=== PATIENT | female | born 1970 | race Caucasian/White ===

== ENCOUNTER 2019-03-31 16:35 | Inpatient (IN) ==
[2019-03-31] MEDS ORDERED: 0.9 % Sodium Chloride 1,000 ML IVC ONE ×2 (17:01→20:53)
[2019-03-31] MEDS ORDERED: Cefepime HCl 1,000 MG in Water for inj. (sterile) 20 ML 10 ML IVP STA (17:06)
[2019-03-31 17:24] LABS: VBG HCO3 28 mEq/L (21-27); VBG PCO2 50 mmHg (41-51); VBG PH 7.35 pH Units (7.32-7.42); VBG PO2 46 mmHg (25-50)
[2019-03-31 17:27] LABS: Basophils % 0.3 %; Eosinophils # 0.1 K/mcL (0.0-0.6); Hematocrit 48.1 % (35.3-44.9); Hemoglobin 16.1 g/dL (11.5-15.4); Immature Granulocytes % 0.2 % (0-4); Lymphocytes # 2.4 K/mcL (0.6-4.6); Mean Corpuscular HGB Conc 33.5 g/dL (31.6-35.5); Mean Corpuscular Hemoglobin 29.8 pg (28.0-33.3); Mean Corpuscular Volume 89.1 fL (83.0-100.0); Mean Platelet Volume 10.3 fL (9.4-12.4); Monocytes # 0.5 K/mcL (0.0-1.3); Monocytes % 5.3 %; Platelet Count 148 K/mcL (140-400); Red Cell Distribution Width 12.4 % (11.5-14.5); Segmented Neutrophils % 69.2 %
[2019-03-31 17:28] LABS: Bilirubin,Urine Negative (Negative); Blood,Urine Small (Negative); Clarity,Urine Cloudy (Clear); Color,Urine Yellow (Yellow); Glucose,Urine (UA) >=1000 mg/dL (Normal); Ketones,Urine Negative (Negative); Leukocyte Esterase,Urine Small (Negative); Nitrite,Urine Negative (Negative); Protein,Urine Negative (Neg-Trace); Specific Gravity,Urine > 1.030 (1.010-1.025); Urobilinogen,Urine Normal (Normal)
--- NOTE | 2019-03-31 17:31 | Emergency Department Note ---
Disposition Clinical Impression: Abscess, Nausea, Myalgia, Hyperglycemia Urinary tract infection Qualifiers: Urinary tract infection type: acute cystitis Hematuria presence: without hematuria Qualified Code(s): N30.00 - Acute cystitis without hematuria Disposition: Admitted As Inpatient Condition: Fair Referrals: NONE,PCP [Primary Care Provider] - Forms: ED Satisfaction Letter General Adult HPI - General Chief complaint: ED Skin/Abscess/Foreign Body Stated complaint: Right arm abscess Time Seen by Provider: 03/31/19 16:43 Source: patient Mode of arrival: ambulatory Limitations: no limitations Nursing Notes Reviewed: Yes Vital Signs Reviewed: Yes - History of Present Illness HPI Narrative: 48-year-old female with significant past medical history of poorly controlled diabetes presenting to the emergency department chief complaint of abscess on her left elbow. Patient states she is an IV drug user and had injection into that site. About 1 week ago became red, raised and then started draining. A scab was over and now that is falling off. She states it is severely painful and she has had severe nausea diffuse myalgias and has not been able to keep her oral intake. She denies any fevers, chest pain or shortness of breath. She denies any history of abscesses or MRSA infection. Pain Scale: 8 - Related Data Home Medications Medication Instructions Recorded Confirmed Carvedilol [Coreg] 3.125 mg PO BIDWM 03/31/19 03/31/19 DULoxetine [Cymbalta] 30 mg PO DAILY 03/31/19 03/31/19 Gabapentin [Neurontin] 300 mg PO TID 03/31/19 03/31/19 Ibuprofen [Ibu] 800 mg PO TID PRN 03/31/19 03/31/19 Insulin Glargine,Hum.rec.anlog 20 unit SQ HS 03/31/19 03/31/19 [Basaglar Kwikpen U-100] Insulin Glargine,Hum.rec.anlog 25 units SQ QAM 03/31/19 03/31/19 [Basaglar Kwikpen U-100] Lisinopril [Zestril] 2.5 mg PO DAILY 03/31/19 03/31/19 Quetiapine Fumarate [SEROquel] 25 mg PO HS 03/31/19 03/31/19 Allergies Allergy/AdvReac Type Severity Reaction Status Date / Time Penicillins Allergy Rash Verified 03/31/19 16:37 All systems ED: reviewed and negative except as stated. Constitutional: Reports: weakness. Denies: fever Eyes: Reports: as per HPI ENT ED: Reports: as per HPI Cardiovascular: Denies: chest pain Respiratory: Denies: dyspnea Gastrointestinal: Reports: nausea. Denies: abdominal pain Genitourinary: Reports: as per HPI Musculoskeletal: Reports: as per HPI Integumentary: Reports: lesions Neurological: Reports: as per HPI Psychiatric: Reports: as per HPI Endocrine: Reports: as per HPI Hematological/Lymphatic: Reports: as per HPI Allergic/Immunologic: Reports: as per HPI Past Medical History - Past Medical History Attestation: Yes The following information was validated with the patient. Medical history: Reports: diabetes - Social History Smoking Status: Current every day smoker Smokeless Tobacco Status: No Alcohol use: Reports: none Drug use: Reports: IV Drug Use Physical Exam - General Limitations: no limitations General appearance: alert, in no apparent distress - Head Head exam: atraumatic, normocephalic, normal inspection - Eye Eye exam: Absent: scleral icterus - ENT ENT exam: mucous membranes dry - Neck Neck exam: Present: full ROM - Chest Chest inspection: Present: symmetric chest wall rise - Respiratory Respiratory exam: Present: normal lung sounds bilaterally. Absent: respiratory distress, wheezes - Cardiovascular Cardiovascular exam: Present: normal rhythm, tachycardia, normal heart sounds - Abdominal Exam Abdominal exam: Present: soft, Non-Tender. Absent: distention, guarding, rebound - Extremities Exam Extremities exam: Present: full ROM, other (Large abscess opened with partial scab covering on the medial aspect of the right anterior elbow. Mild drainage. Redness and firmness around the site. Tenderness to palpation. No streaking. No eschar) - Neurological Exam Neurological exam: Present: alert, oriented X3 - Psychiatric Psychiatric exam: Present: anxious - Skin Skin exam: Present: warm Course Course Narrative: 48-year-old female IV drug user with diabetes presenting with abscess on the left arm. Patient has had it for approximately one week and is now not feeling well including nausea and diffuse myalgia. Concern for sepsis due to abscess. She is alert and oriented 3. Tachycardic but hemodynamically stable. We will obtain basic laboratory analysis including blood cultures, lactic acid and provide the patient with IV antibiotics including vancomycin and cefepime. Disposition most likely admission the pending results. Patient agrees with this plan. - Reevaluation(s) Reevaluation #1: Patient's laboratory analysis shows glucose greater than 600 and an elevated lactic acid at 2.6. No leukocytosis at this time. Patient also has UTI. At this time we will plan to admit the patient for hyperglycemia, abscess and further management. Patient remains alert and oriented 3 and hemodynamically stable. Patient agrees with this plan. I spoke with the hospitalist on-call who agrees to accept the patient at this time. Vital Signs Temperature 98.6 F 03/31/19 16:38 Pulse Rate 112 03/31/19 16:38 Respiratory Rate 20 03/31/19 16:38 Blood Pressure 123/85 03/31/19 16:38 O2 Sat by Pulse Oximetry 98 03/31/19 16:38 Temperature 98.6 F 03/31/19 17:01 Pulse Rate 112 03/31/19 17:01 Respiratory Rate 20 03/31/19 17:01 Blood Pressure 123/85 03/31/19 17:01 O2 Sat by Pulse Oximetry 98 03/31/19 17:01 Oxygen Delivery Oxygen Delivery Room Air Medical Decision Making - Lab Data Result diagrams: 03/31/19 17:01 03/31/19 17:01 Lab Results 03/31/19 03/31/19 03/31/19 Range/Units 17:01 17:01 17:06 WBC 10.2 (4.3-11.1) K/mcL RBC 5.40 H (3.82-4.97) M/mcL Hgb 16.1 H (11.5-15.4) g/dL Hct 48.1 H (35.3-44.9) % MCV 89.1 (83.0-100.0) fL MCH 29.8 (28.0-33.3) pg MCHC 33.5 (31.6-35.5) g/dL RDW 12.4 (11.5-14.5) % Plt Count 148 (140-400) K/mcL MPV 10.3 (9.4-12.4) fL Immature Gran % 0.2 (0-4) % Seg Neutrophils % 69.2 % Lymphocytes % 24.0 % Monocytes % 5.3 % Eosinophils % 1.0 % Basophils % 0.3 % Neutrophils # 7.0 (1.6-8.9) K/mcL Lymphocytes # 2.4 (0.6-4.6) K/mcL Monocytes # 0.5 (0.0-1.3) K/mcL Eosinophils # 0.1 (0.0-0.6) K/mcL Basophils # 0.0 (0.0-0.2) K/mcL VBG pH (7.32-7.42) pH Units VBG pCO2 (41-51) mmHg VBG pO2 (25-50) mmHg VBG HCO3 (21-27) mEq/L Sodium 129 L (136-145) mEq/L Potassium 3.5 (3.5-5.1) mEq/L Chloride 92 L (98-107) mEq/L Carbon Dioxide 28 (23-29) mEq/L BUN 7 (6-20) mg/dL Creatinine 0.70 (0.60-1.20) mg/dL Est GFR ( Amer) > 60 (> 60) Est GFR (Non-Af Amer) > 60 (> 60) BUN/Creatinine Ratio 10 (6-26) Glucose 639 H* (70-105) mg/dL Calculated Osmolality 296 (280-300) Lactic Acid (0.5-2.2) mmol/L Calcium 9.4 (8.6-10.3) mg/dL Beta-Hydroxybutyric Acd 0.15 (0.02-0.27) mmol/L Urine Color (Yellow) Urine Clarity (Clear) Urine pH (5.0-8.0) pH Units Ur Specific [place] (1.010-1.025) Urine Protein (Neg-Trace) mg/dL Urine Glucose (UA) (Normal) mg/dL Urine Ketones (Negative) mg/dL Urine Blood (Negative) Urine Nitrite (Negative) Urine Bilirubin (Negative) Urine Urobilinogen (Normal) mg/dL Ur Leukocyte Esterase (Negative) Urine Microscopic RBC (0-3) per hpf Urine Microscopic WBC (0-3) per hpf Ur Squamous Epith Cells (None-Few) per lpf Urine Bacteria (None-Few) per hpf Hyaline Casts (None-Few) per lpf Ur Culture Indicated? (NO) 03/31/19 03/31/19 03/31/19 Range/Units 17:11 17:21 17:21 WBC (4.3-11.1) K/mcL RBC (3.82-4.97) M/mcL Hgb (11.5-15.4) g/dL Hct (35.3-44.9) % MCV (83.0-100.0) fL MCH (28.0-33.3) pg MCHC (31.6-35.5) g/dL RDW (11.5-14.5) % Plt Count (140-400) K/mcL MPV (9.4-12.4) fL Immature Gran % (0-4) % Seg Neutrophils % % Lymphocytes % % Monocytes % % Eosinophils % % Basophils % % Neutrophils # (1.6-8.9) K/mcL Lymphocytes # (0.6-4.6) K/mcL Monocytes # (0.0-1.3) K/mcL Eosinophils # (0.0-0.6) K/mcL Basophils # (0.0-0.2) K/mcL VBG pH 7.35 (7.32-7.42) pH Units VBG pCO2 50 (41-51) mmHg VBG pO2 46 (25-50) mmHg VBG HCO3 28 H (21-27) mEq/L Sodium (136-145) mEq/L Potassium (3.5-5.1) mEq/L Chloride (98-107) mEq/L Carbon Dioxide (23-29) mEq/L BUN (6-20) mg/dL Creatinine (0.60-1.20) mg/dL Est GFR ( Amer) (> 60) Est GFR (Non-Af Amer) (> 60) BUN/Creatinine Ratio (6-26) Glucose (70-105) mg/dL Calculated Osmolality (280-300) Lactic Acid 2.6 H (0.5-2.2) mmol/L Calcium (8.6-10.3) mg/dL Beta-Hydroxybutyric Acd (0.02-0.27) mmol/L Urine Color Yellow (Yellow) Urine Clarity Cloudy A (Clear) Urine pH 6.0 (5.0-8.0) pH Units Ur Specific [place] > 1.030 H (1.010-1.025) Urine Protein Negative (Neg-Trace) mg/dL Urine Glucose (UA) >=1000 H (Normal) mg/dL Urine Ketones Negative (Negative) mg/dL Urine Blood Small H (Negative) Urine Nitrite Negative (Negative) Urine Bilirubin Negative (Negative) Urine Urobilinogen Normal (Normal) mg/dL Ur Leukocyte Esterase Small H (Negative) Urine Microscopic RBC 3-5 H (0-3) per hpf Urine Microscopic WBC 50-100 H (0-3) per hpf Ur Squamous Epith Cells Many H (None-Few) per lpf Urine Bacteria Many H (None-Few) per hpf Hyaline Casts None Seen (None-Few) per lpf Ur Culture Indicated? YES A (NO)
[2019-03-31 17:39] LABS: Bacteria,Urine Many per hpf (None-Few); Hyaline Casts,Urine None Seen per lpf (None-Few); Squamous Epithelial Cell,Urine Many per lpf (None-Few); WBC,Urine 50-100 per hpf (0-3)
[2019-03-31 17:45] LABS: BUN/Creatinine Ratio 10 (6-26); Blood Urea Nitrogen 7 mg/dL (6-20); Calcium 9.4 mg/dL (8.6-10.3); Carbon Dioxide 28 mEq/L (23-29); Chloride 92 mEq/L (98-107); Glucose 639 mg/dL (70-105); Osmolality,Calculated 296 (280-300); Potassium 3.5 mEq/L (3.5-5.1); Sodium 129 mEq/L (136-145); eGFR For Non-African Americans > 60 (> 60)
[2019-03-31] MEDS ORDERED: Insulin Human Regular 10 UNIT in 0.9 % Sodium Chloride 10 ML IV ONE (17:46)
--- NOTE | 2019-03-31 18:16 | Emergency Department Note ---
Disposition Clinical Impression: Abscess, Nausea, Myalgia, Hyperglycemia Urinary tract infection Qualifiers: Urinary tract infection type: acute cystitis Hematuria presence: without hematuria Qualified Code(s): N30.00 - Acute cystitis without hematuria Disposition: Admitted As Inpatient Condition: Fair Referrals: NONE,PCP [Primary Care Provider] - Forms: ED Satisfaction Letter General Adult HPI - General Chief complaint: ED Skin/Abscess/Foreign Body Stated complaint: Right arm abscess Time Seen by Provider: 03/31/19 16:43 Source: patient Mode of arrival: ambulatory Limitations: no limitations - History of Present Illness Pain Scale: 8 - Related Data Home Medications Medication Instructions Recorded Confirmed Carvedilol [Coreg] 3.125 mg PO BIDWM 03/31/19 03/31/19 DULoxetine [Cymbalta] 30 mg PO DAILY 03/31/19 03/31/19 Gabapentin [Neurontin] 300 mg PO TID 03/31/19 03/31/19 Ibuprofen [Ibu] 800 mg PO TID PRN 03/31/19 03/31/19 Insulin Glargine,Hum.rec.anlog 20 unit SQ HS 03/31/19 03/31/19 [Basaglar Kwikpen U-100] Insulin Glargine,Hum.rec.anlog 25 units SQ QAM 03/31/19 03/31/19 [Basaglar Kwikpen U-100] Lisinopril [Zestril] 2.5 mg PO DAILY 03/31/19 03/31/19 Quetiapine Fumarate [SEROquel] 25 mg PO HS 03/31/19 03/31/19 Allergies Allergy/AdvReac Type Severity Reaction Status Date / Time Penicillins Allergy Rash Verified 03/31/19 16:37 Constitutional: Reports: weakness. Denies: fever Eyes: Reports: as per HPI ENT ED: Reports: as per HPI Cardiovascular: Denies: chest pain Respiratory: Denies: dyspnea Gastrointestinal: Reports: nausea. Denies: abdominal pain Genitourinary: Reports: as per HPI Musculoskeletal: Reports: as per HPI Integumentary: Reports: lesions Neurological: Reports: as per HPI Psychiatric: Reports: as per HPI Endocrine: Reports: as per HPI Hematological/Lymphatic: Reports: as per HPI Allergic/Immunologic: Reports: as per HPI Past Medical History - Past Medical History Medical history: Reports: diabetes - Social History Smoking Status: Current every day smoker Smokeless Tobacco Status: No Alcohol use: Reports: none Drug use: Reports: IV Drug Use Physical Exam - General Limitations: no limitations General appearance: alert, in no apparent distress Course Vital Signs Temperature 98.6 F 03/31/19 16:38 Pulse Rate 112 03/31/19 16:38 Respiratory Rate 20 03/31/19 16:38 Blood Pressure 123/85 03/31/19 16:38 O2 Sat by Pulse Oximetry 98 03/31/19 16:38 Temperature 98.6 F 03/31/19 17:01 Pulse Rate 112 03/31/19 17:01 Respiratory Rate 20 03/31/19 17:01 Blood Pressure 123/85 03/31/19 17:01 O2 Sat by Pulse Oximetry 98 03/31/19 17:01 Oxygen Delivery Oxygen Delivery Room Air Medical Decision Making - Lab Data Result diagrams: 03/31/19 17:01 03/31/19 17:01 Lab Results 03/31/19 03/31/19 03/31/19 Range/Units 17:01 17:01 17:06 WBC 10.2 (4.3-11.1) K/mcL RBC 5.40 H (3.82-4.97) M/mcL Hgb 16.1 H (11.5-15.4) g/dL Hct 48.1 H (35.3-44.9) % MCV 89.1 (83.0-100.0) fL MCH 29.8 (28.0-33.3) pg MCHC 33.5 (31.6-35.5) g/dL RDW 12.4 (11.5-14.5) % Plt Count 148 (140-400) K/mcL MPV 10.3 (9.4-12.4) fL Immature Gran % 0.2 (0-4) % Seg Neutrophils % 69.2 % Lymphocytes % 24.0 % Monocytes % 5.3 % Eosinophils % 1.0 % Basophils % 0.3 % Neutrophils # 7.0 (1.6-8.9) K/mcL Lymphocytes # 2.4 (0.6-4.6) K/mcL Monocytes # 0.5 (0.0-1.3) K/mcL Eosinophils # 0.1 (0.0-0.6) K/mcL Basophils # 0.0 (0.0-0.2) K/mcL VBG pH (7.32-7.42) pH Units VBG pCO2 (41-51) mmHg VBG pO2 (25-50) mmHg VBG HCO3 (21-27) mEq/L Sodium 129 L (136-145) mEq/L Potassium 3.5 (3.5-5.1) mEq/L Chloride 92 L (98-107) mEq/L Carbon Dioxide 28 (23-29) mEq/L BUN 7 (6-20) mg/dL Creatinine 0.70 (0.60-1.20) mg/dL Est GFR ( Amer) > 60 (> 60) Est GFR (Non-Af Amer) > 60 (> 60) BUN/Creatinine Ratio 10 (6-26) Glucose 639 H* (70-105) mg/dL Calculated Osmolality 296 (280-300) Lactic Acid (0.5-2.2) mmol/L Calcium 9.4 (8.6-10.3) mg/dL Beta-Hydroxybutyric Acd 0.15 (0.02-0.27) mmol/L Urine Color (Yellow) Urine Clarity (Clear) Urine pH (5.0-8.0) pH Units Ur Specific [place] (1.010-1.025) Urine Protein (Neg-Trace) mg/dL Urine Glucose (UA) (Normal) mg/dL Urine Ketones (Negative) mg/dL Urine Blood (Negative) Urine Nitrite (Negative) Urine Bilirubin (Negative) Urine Urobilinogen (Normal) mg/dL Ur Leukocyte Esterase (Negative) Urine Microscopic RBC (0-3) per hpf Urine Microscopic WBC (0-3) per hpf Ur Squamous Epith Cells (None-Few) per lpf Urine Bacteria (None-Few) per hpf Hyaline Casts (None-Few) per lpf Ur Culture Indicated? (NO) 03/31/19 03/31/19 03/31/19 Range/Units 17:11 17:21 17:21 WBC (4.3-11.1) K/mcL RBC (3.82-4.97) M/mcL Hgb (11.5-15.4) g/dL Hct (35.3-44.9) % MCV (83.0-100.0) fL MCH (28.0-33.3) pg MCHC (31.6-35.5) g/dL RDW (11.5-14.5) % Plt Count (140-400) K/mcL MPV (9.4-12.4) fL Immature Gran % (0-4) % Seg Neutrophils % % Lymphocytes % % Monocytes % % Eosinophils % % Basophils % % Neutrophils # (1.6-8.9) K/mcL Lymphocytes # (0.6-4.6) K/mcL Monocytes # (0.0-1.3) K/mcL Eosinophils # (0.0-0.6) K/mcL Basophils # (0.0-0.2) K/mcL VBG pH 7.35 (7.32-7.42) pH Units VBG pCO2 50 (41-51) mmHg VBG pO2 46 (25-50) mmHg VBG HCO3 28 H (21-27) mEq/L Sodium (136-145) mEq/L Potassium (3.5-5.1) mEq/L Chloride (98-107) mEq/L Carbon Dioxide (23-29) mEq/L BUN (6-20) mg/dL Creatinine (0.60-1.20) mg/dL Est GFR ( Amer) (> 60) Est GFR (Non-Af Amer) (> 60) BUN/Creatinine Ratio (6-26) Glucose (70-105) mg/dL Calculated Osmolality (280-300) Lactic Acid 2.6 H (0.5-2.2) mmol/L Calcium (8.6-10.3) mg/dL Beta-Hydroxybutyric Acd (0.02-0.27) mmol/L Urine Color Yellow (Yellow) Urine Clarity Cloudy A (Clear) Urine pH 6.0 (5.0-8.0) pH Units Ur Specific [place] > 1.030 H (1.010-1.025) Urine Protein Negative (Neg-Trace) mg/dL Urine Glucose (UA) >=1000 H (Normal) mg/dL Urine Ketones Negative (Negative) mg/dL Urine Blood Small H (Negative) Urine Nitrite Negative (Negative) Urine Bilirubin Negative (Negative) Urine Urobilinogen Normal (Normal) mg/dL Ur Leukocyte Esterase Small H (Negative) Urine Microscopic RBC 3-5 H (0-3) per hpf Urine Microscopic WBC 50-100 H (0-3) per hpf Ur Squamous Epith Cells Many H (None-Few) per lpf Urine Bacteria Many H (None-Few) per hpf Hyaline Casts None Seen (None-Few) per lpf Ur Culture Indicated? YES A (NO) Attestation Statement - Attestation Attestation: I examined this patient and my medical decision-making was reviewed with the Resident Physician. I agree with the documented findings, disposition and treatment plan as described except to the extent set forth below. 48 year old female presents to the ED with complaints of right arm abscess and is an IVDA and has diabetes and it apears that she is increasingly more hypregycemic secondary to and arm infection. She is not in DKA. We will start cefepime and vanc and admit to medicine
[2019-03-31] MEDS ORDERED: D5% in Water 1,000 ML IVC PRN (20:53)
[2019-03-31] MEDS ORDERED: Ondansetron 4 MG/2 ML VIAL IVP PRN (20:53)
[2019-03-31] MEDS ORDERED: *HR* Dextrose 50 % in Water (Syg) 50 ML SYRINGE IVP PRN (20:53)
[2019-03-31] MEDS ORDERED: Isovue-370 500 ML BOTTLE IVP ONE ×2 (20:53)
[2019-03-31] MEDS ORDERED: Naloxone 0.4 MG/ML INJ IVP PRN ×2 (20:53)
[2019-03-31] MEDS ORDERED: Acetaminophen 325 MG TABLET PO PRN (20:53)
[2019-03-31] MEDS ORDERED: Dextrose Gel 15 GM/37.5 ML TUBE PO PRN ×2 (20:53)
--- NOTE | 2019-03-31 21:13 | Internal Med History&Physical ---
Date of Encounter: 04/01/19 Time of Encounter: 19:50 Internal Medicine - H&P: HPI Chief complaint: right arm ulcer; abdominal pain Admitted From: Emergency Dept Plans for Post Hospital Care: Home History of present illness: Ms. Ty is a 48 year old female who presents to the ER tonight with complaints of abscess/ulcer of her right arm at her injection site she uses for IV drugs. She was brought in by her daughter due to worsening pain, agitation, and swelling of right arm. Workup in ER revealed ulceration, cellulitis, and concern for abscess. She had blood cultures drawn and was started on antibiotics. She was then admitted to the hospitalist service. Upon my assessment of the patient, patient and daughter provide the above history. Patient admits to using and injecting methamphetamine regularly into her right arm/elbow area. Patient also complains of some abdominal pain. She complains mostly of right upper quadrant pain going to her scapula. She has had some nausea, food intolerance, and bloating. She has had occasional diarrhea. She also has suprapubic pain with dysuria. Urinalysis suggests UTI. She also complains of possible STD. She would like to get tested for gonorrhea and chlamydia. She has not been sexually active recently but has prior history of STDs. She denies any vaginal discharge or irritation. Regarding her IV drug use, she is a chronic abuser of methamphetamine. She lives in [place], [place], and her daughter brought her here locally where she resides. Her daughter brought her in the hospital today. Her daughter and sibling do not use drugs and are trying to get the patient to quit abusing illicit drugs. She does not drink alcohol. She does smoke marijuana as well. She admits to having hepatitis C and a prior history of MRSA from injection site infections. Past Med Surg Social Fam HX - Past Medical History Attestation: Yes The following information was validated with the patient. Source: patient, obtained from family Medical history: diabetes, hepatitis (Hep C) Psychiatric history: anxiety, bipolar, depression - Past Surgical History Surgical History: orthopedic, other - Social History Smoking Status: Current every day smoker Smokeless Tobacco Status: No Alcohol use: none Drug use: methamphetamine, IV Drug Use Current living situation: Home - Independent Activity Level: Independent ambulation Recent Out of Country Travel Within the Last 8 Weeks: No - Family History Mother Hx Family Medical Disorders: Yes (anixety, depression) Father Hx Family Endocrine Disorder: Yes (DM) Internal Medicine - H&P: Meds Carvedilol [Coreg] 3.125 mg PO BIDWM 03/31/19 [History] DULoxetine [Cymbalta] 30 mg PO DAILY 03/31/19 [History] Gabapentin [Neurontin] 300 mg PO TID 03/31/19 [History] Ibuprofen [Ibu] 800 mg PO TID PRN 03/31/19 [History] Insulin Glargine,Hum.rec.anlog [Basaglar Kwikpen U-100] 20 unit SQ HS 03/31/19 [History] Insulin Glargine,Hum.rec.anlog [Basaglar Kwikpen U-100] 25 units SQ QAM 03/31/19 [History] Lisinopril [Zestril] 2.5 mg PO DAILY 03/31/19 [History] Quetiapine Fumarate [SEROquel] 25 mg PO HS 03/31/19 [History] Allergy/AdvReac Type Severity Reaction Status Date / Time Penicillins Allergy Rash Verified 03/31/19 16:37 - Constitutional Constitutional: chills, fever(s), no night sweats - EENT Eyes: no blurry vision, no change in vision Ears: no ear pain, no tinnitus Nose, mouth and throat: no nasal congestion, no sinus pressure, no sore throat - Cardiovascular Cardiovascular ROS IM: no chest pain, no dyspnea, no orthopnea, no syncope - Respiratory Respiratory: no cough, no chest congestion, no excessive phlegm production, no change in phlegm color, no pain with cough - Gastrointestinal Gastrointestinal: abdominal pain, belching, bloating, diarrhea, heartburn, nausea, vomiting, no coffee ground emesis, no hematemesis, no hematochezia, no melena - Genitourinary Genitourinary: dysuria, flank pain, pelvic pain, vaginal pruritis, no genital lesions, no hematuria, no vaginal discharge, no vaginal odor - Musculoskeletal Musculoskeletal ROS IM: no arthralgias, no back pain - Integumentary Integumentary IM: non-healing lesions (ulcer/surrounding cellulitis in right elbow), no rash, no jaundice - Neurological Neurological ROS: no disequilibrium, no dizziness, no focal weakness, no wei quent falls, no headache(s) - Psychiatric Psychiatric: anxiety, no depression - Endocrine Endocrine IM: polydipsia, polyuria, no cold intolerance, no heat intolerance, no polyphagia - Allergic/Immunologic Allergic/Immunologic: GI upset with certain foods - Constitutional Vitals: Temp Pulse Resp BP Pulse Ox 98.6 F 92 18 112/69 98 03/31/19 17:01 03/31/19 18:22 03/31/19 18:22 03/31/19 18:22 03/31/19 18:22 General appearance: Present: cooperative, mild distress, A&O X 3, pleasant, answers questions appropriately Exam: mild distress-- from right arm and RUQ pain - Head Head exam: Present: atraumatic, normal inspection - Eye Eye exam: Present: EOMI, PERRL. Absent: scleral icterus Pupils: Present: normal accommodation - ENT ENT exam: Present: mucous membranes dry, normal exam, normal oropharynx - Neck Neck exam general surgery: Present: full ROM, supple, trachea midline. Absent: lymphadenopathy, tenderness, nuchal rigidity, thyromegaly - Respiratory Respiratory exam: Present: CTAB. Absent: chest wall tenderness, rales, rhonchi, wheezes - Cardiovascular Cardiovascular exam: Present: RRR, +S1, +S2. Absent: diastolic murmur, systolic murmur - GI/Abdominal GI/Abdominal exam: Present: normal bowel sounds, soft, tenderness (RUQ), no peritoneal signs. Absent: guarding, hepatomegaly, mass, rebound, splenomegaly Additional comments: + suprapubic tenderness - Extremities Exam Extremities exam: Present: full ROM, tenderness, warm, radial pulses palpable and symmetrical. Absent: calf tenderness, joint swelling, pedal edema Additional comments: right arm/medial elbow area with ulceration at injection site with some surrounding erythema and swelling; both hands/arms neurovascularly intact - Back Exam Back exam: Present: normal inspection. Absent: CVA tenderness (L), CVA tenderness (R) - Neurological Exam Neurological exam: Present: alert, CN II-XII intact, oriented X3, no focal deficits, strengths equal and symetr throughout - Psychiatric Psychiatric exam: Present: anxious - Skin Skin exam: Present: dry, intact, warm Additional comments: right arm ulcer/cellulitis as above Internal Med - H&P Results - Labs CBC & Chem 7: 03/31/19 17:01 03/31/19 17:01 Labs: Short CBC 03/31/19 Range/Units 17:01 WBC 10.2 (4.3-11.1) K/mcL Hgb 16.1 H (11.5-15.4) g/dL Hct 48.1 H (35.3-44.9) % Plt Count 148 (140-400) K/mcL Neutrophils # 7.0 (1.6-8.9) K/mcL BMP 03/31/19 17:01 Sodium 129 L Potassium 3.5 Chloride 92 L Carbon Dioxide 28 BUN 7 Creatinine 0.70 Glucose 639 H* Calcium 9.4 Urine 03/31/19 Range/Units 17:21 Urine Color Yellow (Yellow) Urine Clarity Cloudy A (Clear) Urine pH 6.0 (5.0-8.0) pH Units Ur Specific [place] > 1.030 H (1.010-1.025) Urine Protein Negative (Neg-Trace) mg/dL Urine Glucose (UA) >=1000 H (Normal) mg/dL - ABG Interpretation ABG results: 03/31/19 17:21 VBG pH 7.35 VBG pCO2 50 VBG pO2 46 VBG HCO3 28 H - Assessment and Plan (1) Abscess Current Visit: Yes Status: Suspected Assessment and plan: 1. Blood cultures drawn in ER. 2. Will continue IV Vancomycin and Levaquin. 3. I ordered CT RUE to evaluate for underlying abscess. 4. Patient may need surgical intervention. (2) Hyperglycemia Current Visit: Yes Status: Acute Assessment and plan: 1. I ordered basal Levemir insulin and SSI. 2. Will hydrate with IVF and monitor glucose closely. 3. Patient does not have any evidence of DKA presently, but she is high risk for DKA if untreated. 4. She is non-complaint with her diabetes management. (3) Urinary tract infection Current Visit: Yes Status: Acute Assessment and plan: 1. Urine culture obtained. 2. Continue antibiotics as above. 3. GC/Chlamydia urine PCR ordered. 4. Patient may need DIRECTOR OF SURGERY consult. However, suspect symptoms are due to UTI and possible GB disease. Qualifiers: Urinary tract infection type: acute cystitis Hematuria presence: without hematuria Qualified Code(s): N30.00 - Acute cystitis without hematuria (4) Abdominal pain Current Visit: Yes Status: Acute Assessment and plan: 1. Suspect GB disease based upon history and exam. 2. CT abdomen and pelvis ordered. 3. Will check LFT's. 4. Protonix IV BID. 5. May need RUQ ultrasound. Qualifiers: Abdominal location: right upper quadrant Qualified Code(s): R10.11 - Right upper quadrant pain (5) DVT prophylaxis Current Visit: Yes Status: Acute Assessment and plan: 1. Heparin SQ.
[2019-03-31 21:37] LABS: Estimated Average Glucose 295 mg/dl; Hemoglobin A1C 11.9 %
[2019-03-31 21:43] LABS: Prothrombin Time 11.2 Seconds (9.4-12.1)
[2019-03-31] MEDS: Gabapentin 300 MG CAPSULE PO SCH (21:43)
[2019-03-31] MEDS: Pantoprazole 40 MG VIAL IVP SCH (21:44)
[2019-03-31] MEDS: Levofloxacin 750 MG/150 ML 750 MG/150 ML BAG IVPB SCH (21:44)
[2019-03-31 21:45] LABS: Albumin 2.9 g/dL (3.5-5.7); Albumin/Globulin Ratio 1.1 (1.1-2.2); Bilirubin,Direct 0.1 mg/dL (0.0-0.2); Bilirubin,Indirect 0.2 mg/dL (0.0-1.2); Bilirubin,Total 0.3 mg/dL (0.3-1.0); Globulin 2.7 g/dL (2.4-3.5); Total Protein 5.6 g/dL (6.4-8.9)
[2019-03-31 21:46] LABS: Activated Partial Thrombo Time 28.3 Seconds (26.0-36.0)
[2019-03-31] MEDS: Insulin LISPRO 300 UNITS/3 ML VIAL SQ SCH (21:56)
[2019-03-31] MEDS: Insulin DETEMIR 100 UNIT/ML X5UNITS SQ SCH (21:57)
[2019-03-31] MEDS: 0.9 % Sodium Chloride w KCl 20 MEQ/1,000 ML MLS IVC SCH (23:18)
[2019-03-31 23:41] LABS: Amphetamine Screen,Urine Positive ng/mL (Cutoff=1000); Barbiturate Screen,Urine Negative ng/mL (Cutoff=200); Benzodiazepines Screen,Urine Negative ng/mL (Cutoff=200); Cannabinoid Screen,Urine Negative ng/mL (Cutoff = 50); Cocaine Screen,Urine Positive ng/mL (Cutoff= 300); Opiate Screen,Urine Negative ng/mL (Cutoff=300); Phencyclidine Screen,Urine Negative ng/mL (Cutoff=25)
[2019-03-31] MEDS: traMADol 50 MG TABLET PO PRN (23:58)
[2019-04-01] MEDS ORDERED: MetroNIDAZOLE 500 MG/100 ML 500 MG/100 ML BAG IVPB SCH
[2019-04-01] MEDS ORDERED: Insulin DETEMIR 100 UNIT/ML X5UNITS SQ ONE (00:05)
[2019-04-01] MEDS: *HR* LORazepam 1 MG TABLET PO PRN ×3 (00:45→20:48)
[2019-04-01] MEDS ORDERED: Vancomycin 500 MG in 0.9 % Sodium Chloride Mini Bag 100 ML IVPB ONE (01:00)
[2019-04-01 01:10] LABS: Basophils % 0.5 %; Eosinophils # 0.1 K/mcL (0.0-0.6); Eosinophils % 1.1 %; Hematocrit 39.4 % (35.3-44.9); Immature Granulocytes % 0.3 % (0-4); Lymphocytes # 2.8 K/mcL (0.6-4.6); Lymphocytes % 35.9 %; Mean Corpuscular HGB Conc 33.2 g/dL (31.6-35.5); Mean Corpuscular Hemoglobin 30.1 pg (28.0-33.3); Mean Corpuscular Volume 90.6 fL (83.0-100.0); Mean Platelet Volume 10.4 fL (9.4-12.4); Monocytes # 0.7 K/mcL (0.0-1.3); Monocytes % 8.6 %; Neutrophils # 4.3 K/mcL (1.6-8.9); Platelet Count 107 K/mcL (140-400); Red Blood Count 4.35 M/mcL (3.82-4.97); Red Cell Distribution Width 12.4 % (11.5-14.5); Segmented Neutrophils % 53.6 %
[2019-04-01 01:13] LABS: Hemoglobin 13.1 g/dL (11.5-15.4)
[2019-04-01 01:19] LABS: Prothrombin Time 11.3 Seconds (9.4-12.1)
[2019-04-01 01:29] LABS: Alanine Aminotransferase 73 Units/L (7-52); Albumin 2.8 g/dL (3.5-5.7); Albumin/Globulin Ratio 1.2 (1.1-2.2); Alkaline Phosphatase 86 Units/L (34-104); Aspartate Amino Transferase 72 Units/L (13-39); BUN/Creatinine Ratio 13 (6-26); Bilirubin,Total 0.3 mg/dL (0.3-1.0); Blood Urea Nitrogen 7 mg/dL (6-20); Calcium 7.7 mg/dL (8.6-10.3); Carbon Dioxide 24 mEq/L (23-29); Chloride 106 mEq/L (98-107); Globulin 2.4 g/dL (2.4-3.5); Glucose 342 mg/dL (70-105); Magnesium 1.5 mg/dL (1.6-2.6); Osmolality,Calculated 288 (280-300); Potassium 4.1 mEq/L (3.5-5.1); Sodium 133 mEq/L (136-145); Total Protein 5.2 g/dL (6.4-8.9); eGFR For Non-African Americans > 60 (> 60)
[2019-04-01] MEDS: Pantoprazole 40 MG VIAL IVP SCH (05:31)
[2019-04-01] MEDS: *HR* Heparin 5,000 UNIT/ML VIAL SQ SCH ×2 (05:33→17:59)
[2019-04-01] MEDS: traMADol 50 MG TABLET PO PRN (05:39)
[2019-04-01] MEDS: 0.9 % Sodium Chloride w KCl 20 MEQ/1,000 ML MLS IVC SCH (08:45)
[2019-04-01] MEDS: Levofloxacin 750 MG/150 ML 750 MG/150 ML BAG IVPB SCH (08:46)
[2019-04-01] MEDS: Gabapentin 300 MG CAPSULE PO SCH ×3 (08:50→20:42)
[2019-04-01] MEDS: Insulin LISPRO 300 UNITS/3 ML VIAL SQ SCH ×4 (08:51→21:24)
[2019-04-01] MEDS: Insulin DETEMIR 100 UNIT/ML X5UNITS SQ SCH ×2 (11:48→21:28)
--- NOTE | 2019-04-01 14:16 | Event Note ---
Date of Encounter: 04/01/19 Time of Encounter: 11:15 H&P reviewed. Patient with history of IV drug abuse is admitted for right upper extremity abscess. Started on vancomycin/Levaquin, will consult orthopedics for possible I&D. Continue basal bolus insulin for poorly controlled diabetes
--- NOTE | 2019-04-01 18:44 | Orthopedic Consult Note ---
Date of Encounter: 04/01/19 Time of Encounter: 18:15 Assessment and Plan (1) Abscess Current Visit: Yes Status: Suspected Right medial elbow abscess noted on CT and exam with partial thickness skin ulceration to middle. I recommend to patient to do a bedside I&D of the abscess. I reviewed the procedure as well as r/b/a with the patient. She expressed understanding and consent was obtained. The right medial elbow was prepped and draped in sterile fashion. 10cc 1% lidocaine was used to anesthetize the medial elbow. There was no active drainage coming from the ulceration so the edges were linearly extended over the palpable fluctuance then through the ulceration to open area. There was bleeding but no purulent drainage expressed despite dissecting with hemostats to break any loculations. Pressure applied to edges but still only bleeding. wound cultures were obtained. Wound irrigated with saline and iodoform packing placed with dry gauze pressure dressing. Patient tolerated procedure well, no complications. Nurse was present for assistance. Leave dressings in place. Can reinforce dressings or replace if become saturated but try to not disturb packing in place. Elevate arm. ROM as tolerated. Pain control per primary team. IV abx per primary team. I did obtain wound cultures however patient has already been started on IV vancomycin and levoquin so questionable if will have any growth. Will reevaluate tomorrow and plan to remove the packing at that time. History of Present Illness Chief complaint: right elbow pain and swelling HPI: Ms. Ty is a 48 year old female who presented to [place] ER yesterday for right elbow pain and swelling worsening over the past week as well as abdominal pain. She admits to IVDA and did inject into the arm 1 week ago in same location as pain and swelling started. She states pain is sharp/pressure and localized to the elbow, does not radiate to shoulder or down arm. Denies any numbness or tingling. Denies any fevers or chills but has had abdominal pain. She does admit to a history of MRSA. She does admit to noncompliance with diabetes management. She denies any other symptoms at this time. Past Med Surg Social Fam HX - Past Medical History Medical history: diabetes, hepatitis (Hep C) Psychiatric history: anxiety, bipolar, depression - Past Surgical History Surgical History: orthopedic, other - Social History Smoking Status: Current every day smoker Smokeless Tobacco Status: No Alcohol use: none Drug use: methamphetamine, IV Drug Use - Family History Mother Hx Family Medical Disorders: Yes (anixety, depression) Father Hx Family Endocrine Disorder: Yes (DM) Medications and Allergies Carvedilol [Coreg] 3.125 mg PO BIDWM 03/31/19 [History] DULoxetine [Cymbalta] 30 mg PO DAILY 03/31/19 [History] Gabapentin [Neurontin] 300 mg PO TID 03/31/19 [History] Ibuprofen [Ibu] 800 mg PO TID PRN 03/31/19 [History] Insulin Glargine,Hum.rec.anlog [Basaglar Kwikpen U-100] 20 unit SQ HS 03/31/19 [History] Insulin Glargine,Hum.rec.anlog [Basaglar Kwikpen U-100] 25 units SQ QAM 03/31/19 [History] Lisinopril [Zestril] 2.5 mg PO DAILY 03/31/19 [History] Quetiapine Fumarate [SEROquel] 25 mg PO HS 03/31/19 [History] Allergy/AdvReac Type Severity Reaction Status Date / Time Penicillins Allergy Rash Verified 03/31/19 16:37 All Systems Reviewed: The remainder of the systems were reviewed and are negative - Constitutional Constitutional: as per HPI - Cardiovascular Cardiovascular: as per HPI - Respiratory Respiratory: as per HPI - Musculoskeletal Musculoskeletal: as per HPI Physical Exam - Constitutional Vitals: Temp Pulse Resp BP Pulse Ox 97.9 F 101 16 131/71 97 04/01/19 14:49 04/01/19 14:49 04/01/19 14:49 04/01/19 14:49 04/01/19 14:49 - Elbow right Location of pain elbow: medial (There is a noted partial thickness ulceration to the medial elbow roughly [id number] with fibrinous tissue in middle with surrounding erythema, no streaking noted up arm. Small edematous area palpable under erythema outside the ulceration. No active drainage with palpation of area . Moderate tenderness to palpation. Full ROM of elbow, wrist and hand. brisk cap refill. sensation intact distally. ) Results - Labs Result Diagrams: 04/01/19 00:52 04/01/19 00:52 Labs: Abnormal lab results RBC 5.40 M/mcL (3.82-4.97) H 03/31/19 17:01 Hgb 16.1 g/dL (11.5-15.4) H 03/31/19 17:01 Hct 48.1 % (35.3-44.9) H 03/31/19 17:01 Plt Count 107 K/mcL (140-400) L 04/01/19 00:52 VBG HCO3 28 mEq/L (21-27) H 03/31/19 17:21 Sodium 133 mEq/L (136-145) L 04/01/19 00:52 Chloride 92 mEq/L (98-107) L 03/31/19 17:01 0.52 mg/dL (0.60-1.20) L 04/01/19 00:52 Glucose 342 mg/dL (70-105) H 04/01/19 00:52 POC Glucose 320 mg/dL (70-99) H 04/01/19 16:19 11.9 % (-5.6) H 03/31/19 21:15 Lactic Acid 3.1 mmol/L (0.5-2.2) H 03/31/19 21:06 Calcium 7.7 mg/dL (8.6-10.3) L 04/01/19 00:52 Magnesium 1.5 mg/dL (1.6-2.6) L 04/01/19 00:52 AST 72 Units/L (13-39) H 04/01/19 00:52 ALT 73 Units/L (7-52) H 04/01/19 00:52 5.2 g/dL (6.4-8.9) L 04/01/19 00:52 2.8 g/dL (3.5-5.7) L 04/01/19 00:52 Cloudy (Clear) A 03/31/19 17:21 Ur Specific [place] > 1.030 (1.010-1.025) H 03/31/19 17:21 >=1000 mg/dL (Normal) H 03/31/19 17:21 Small (Negative) H 03/31/19 17:21 Ur Leukocyte Esterase Small (Negative) H 03/31/19 17:21 3-5 per hpf (0-3) H 03/31/19 17:21 50-100 per hpf (0-3) H 03/31/19 17:21 Ur Squamous Epith Cells Many per lpf (None-Few) H 03/31/19 17:21 Many per hpf (None-Few) H 03/31/19 17:21 Ur Culture Indicated? YES (NO) A 03/31/19 17:21 Ur Amphetamines Screen Positive ng/mL (Stykqe=1900) H 03/31/19 23:20 Positive ng/mL (Cutoff= 300) H 03/31/19 23:20 H & H 04/01/19 Range/Units 00:52 Hgb 13.1 D (11.5-15.4) g/dL Hct 39.4 (35.3-44.9) % All other labs normal. - Diagnostic results Elbow CT: report reviewed, image reviewed Consult Discharge Plan - Plan Referrals: NONE,PCP [Primary Care Provider] - - Attending Attestation Case and plan of care discussed with supervising physician, Dr. Rios, who was available for all aspects of care.
[2019-04-02] MEDS: *HR* Heparin 5,000 UNIT/ML VIAL SQ SCH (04:10)
[2019-04-02 06:31] LABS: Hematocrit 41.2 % (35.3-44.9); Hemoglobin 13.8 g/dL (11.5-15.4); Mean Corpuscular HGB Conc 33.5 g/dL (31.6-35.5); Mean Corpuscular Hemoglobin 30.2 pg (28.0-33.3); Mean Corpuscular Volume 90.2 fL (83.0-100.0); Mean Platelet Volume 10.3 fL (9.4-12.4); Platelet Count 114 K/mcL (140-400); Red Blood Count 4.57 M/mcL (3.82-4.97); Red Cell Distribution Width 12.3 % (11.5-14.5)
[2019-04-02 06:53] LABS: BUN/Creatinine Ratio 25 (6-26); Blood Urea Nitrogen 13 mg/dL (6-20); Calcium 8.6 mg/dL (8.6-10.3); Carbon Dioxide 29 mEq/L (23-29); Chloride 100 mEq/L (98-107); Glucose 306 mg/dL (70-105); Osmolality,Calculated 290 (280-300); Sodium 134 mEq/L (136-145); eGFR For Non-African Americans > 60 (> 60)
[2019-04-02] MEDS: Insulin LISPRO 300 UNITS/3 ML VIAL SQ SCH ×4 (08:15→21:56)
[2019-04-02] MEDS: Levofloxacin 750 MG/150 ML 750 MG/150 ML BAG IVPB SCH (08:16)
[2019-04-02] MEDS: Gabapentin 300 MG CAPSULE PO SCH ×3 (08:17→21:55)
[2019-04-02] MEDS: Insulin DETEMIR 100 UNIT/ML X5UNITS SQ SCH ×2 (08:26→21:55)
[2019-04-02] MEDS ORDERED: Insulin DETEMIR 100 UNIT/ML X5UNITS SQ ONE (09:15)
--- NOTE | 2019-04-02 13:08 | Internal Med Progress Note ---
Hospitalist Progress Note - Encounter Date of Encounter: 04/02/19 Time of Encounter: 10:45 - Subjective Interval History: Underwent I&D of right elbow abscess uneventfully yesterday. No acute events overnight. No fever/chills - Exam Vitals: Temp Pulse Resp BP Pulse Ox 98.5 F 88 15 102/69 96 04/02/19 11:17 04/02/19 11:17 04/02/19 11:17 04/02/19 11:17 04/02/19 11:17 Exam: General: Alert and oriented, not in acute distress. Cardiovascular:Normal S1 & S2, No JVD. Pulse regular. No murmur Lungs: clear to auscultation, no wheezes/rales Abdomen:Soft, non-tender, no rigidity. Extremities: RUE dressing c/d/i, neurovascularly intact distally - Assessment and Plan (1) Abscess Current Visit: Yes Status: Acute Assessment and Plan: R medial elbow abscess noted on CT underwent I&D yesterday evening by orthopedics continue IV Vanc/levaquin, follow up on blood and intraop cultures dressing change per orthopedics (2) Hyperglycemia Current Visit: Yes Status: Acute Assessment and Plan: Continue basal bolus insulin, will increase Levemir to 15 units twice a day (3) Urinary tract infection Current Visit: Yes Status: Ruled-out Assessment and Plan: urine culture grew E.coli sen to levaquin, on abx as above (4) Hypertension Current Visit: Yes Status: Chronic Assessment and Plan: Resume DAVE inhibitor (5) DVT prophylaxis Current Visit: Yes Status: Acute Assessment and Plan: Heparin SQ - Time Spent with Patient Total time spent is greater than 50% in coordination of care (as documented) at patient's floor/unit and/or counseling patient: 25 - 35 minutes Plan of Care Discussed with: patient Internal Medicine: Result - Labs CBC & Chem 7: 04/02/19 06:17 04/02/19 06:17 Labs: Short CBC 04/02/19 Range/Units 06:17 WBC 5.8 (4.3-11.1) K/mcL Hgb 13.8 (11.5-15.4) g/dL Hct 41.2 (35.3-44.9) % Plt Count 114 L (140-400) K/mcL BMP 04/02/19 06:17 Sodium 134 L Potassium 4.0 Chloride 100 Carbon Dioxide 29 BUN 13 Creatinine 0.52 L Glucose 306 H Calcium 8.6 - ABG Interpretation ABG results: PT/INR, D-dimer PT 11.3 Seconds (9.4-12.1) 04/01/19 00:52 Consult Discharge Plan - Plan Referrals: NONE,PCP [Primary Care Provider] - (3) Urinary tract infection Qualifiers: Urinary tract infection type: acute cystitis Hematuria presence: without hematuria Qualified Code(s): N30.00 - Acute cystitis without hematuria (4) Hypertension Qualifiers: Hypertension type: essential hypertension Qualified Code(s): I10 - Essential (primary) hypertension
--- NOTE | 2019-04-02 16:54 | Orthopedics Progress Note ---
Date of Encounter: 04/02/19 Time of Encounter: 16:30 - Assessment and Plan (1) Abscess Current Visit: Yes Status: Acute s/p bedside I&D of right elbow abscess yesterday. Wound cx pending, no growth to date but IV abx had already been started before cx obtained Significant improvement to erythema and swelling to right medial elbow. Packing was removed today, patient tolerated well and wound cleansed with new dressings applied Begin local wound care cleansing with soap/water 3xdaily while in hospital to continue upon discharge home as well. Patient educated on instructions how to do this. Keep covered with dry gauze dressings until fully healed. Continue motion as tolerated. Continue abx per primary team. WBC continues to trend down now 5.8 today Subjective Principal diagnosis: right elbow abscess Interval history: Patient states she is not feeling well overall today, generalized feeling but no specific complaints. She states the elbow does feel a little better with dec reased swelling and pain. Denies any new symptoms, No numbness or tingling in fingers. Objective Vital signs: Vital Signs Temp Pulse Resp BP Pulse Ox 04/02/19 15:02 97.8 F 94 15 112/71 96 04/02/19 11:17 98.5 F 88 15 102/69 96 04/02/19 08:05 98 04/02/19 07:42 98.5 F 79 15 151/94 98 04/02/19 04:17 98.5 F 83 15 115/74 96 04/02/19 00:55 98.8 F 83 14 114/60 97 04/01/19 21:10 98.3 F 98 16 118/74 96 Intake and Output 04/02/19 04/02/19 04/02/19 07:59 15:59 23:59 Intake Total 1993 1504 / 1994 Output Total 0 / 60 60 / 60 Balance 490 / 4 1444 / 1934 Intake: IV Fluids 250 / 1754 1504 / 1754 KCl 20 mEq in 0.9% Sodium 1000 / 1000 Chloride 20 meq In 1,000 ml @ 150 mls/hr IVC .[id number] DANIELA Rx#: [id number] Levaquin Premix 750mg/150 mL 150 / 150 750 mg In 150 ml @ 100 mls/hr IVPB DAILY DANIELA Rx#:[id number] Magnesium Sulfate 2 GM In 0.9 % 104 / 104 Sodium Chloride 100 ML @ 104 mls/hr IVPB ONCE ONE Rx#: [id number] Vancocin 1,000 MG In 0.9 % 250 / 500 250 / 500 Sodium Chloride 250 ML @ 167 mls/hr IVPB Q12H [facility] Rx#: [id number] Oral 240 / 240 0 / 240 Output: Urine 0 / 60 60 / 60 Other: Meal Lunch Percent of Meal Consumed 100% # Voids 1 1 Weight 69.2 kg Blood Glucose* 248 194 Patient Weight 04/02/19 23:59 Weight 69.2 kg Incision: healing (Incision to right medial elbow is still open with minimal active drainage, serous, no purulent drainage. erythema and swelling significantly improved. continued tenderness to palpation. full elbow ROM, full hand and wrist motion. brisk cap refill, sensation intact distally.) - Labs CBC & BMP: 04/02/19 06:17 04/02/19 06:17 Labs: Abnormal lab results RBC 5.40 M/mcL (3.82-4.97) H 03/31/19 17:01 Hgb 16.1 g/dL (11.5-15.4) H 03/31/19 17:01 Hct 48.1 % (35.3-44.9) H 03/31/19 17:01 Plt Count 114 K/mcL (140-400) L 04/02/19 06:17 VBG HCO3 28 mEq/L (21-27) H 03/31/19 17:21 Sodium 134 mEq/L (136-145) L 04/02/19 06:17 Chloride 92 mEq/L (98-107) L 03/31/19 17:01 0.52 mg/dL (0.60-1.20) L 04/02/19 06:17 Glucose 306 mg/dL (70-105) H 04/02/19 06:17 POC Glucose 166 mg/dL (70-99) H 04/01/19 21:12 11.9 % (-5.6) H 03/31/19 21:15 Lactic Acid 3.1 mmol/L (0.5-2.2) H 03/31/19 21:06 Calcium 7.7 mg/dL (8.6-10.3) L 04/01/19 00:52 Magnesium 1.5 mg/dL (1.6-2.6) L 04/01/19 00:52 AST 72 Units/L (13-39) H 04/01/19 00:52 ALT 73 Units/L (7-52) H 04/01/19 00:52 5.2 g/dL (6.4-8.9) L 04/01/19 00:52 2.8 g/dL (3.5-5.7) L 04/01/19 00:52 Cloudy (Clear) A 03/31/19 17:21 Ur Specific [place] > 1.030 (1.010-1.025) H 03/31/19 17:21 >=1000 mg/dL (Normal) H 03/31/19 17:21 Small (Negative) H 03/31/19 17:21 Ur Leukocyte Esterase Small (Negative) H 03/31/19 17:21 3-5 per hpf (0-3) H 03/31/19 17:21 50-100 per hpf (0-3) H 03/31/19 17:21 Ur Squamous Epith Cells Many per lpf (None-Few) H 03/31/19 17:21 Many per hpf (None-Few) H 03/31/19 17:21 Ur Culture Indicated? YES (NO) A 03/31/19 17:21 Ur Amphetamines Screen Positive ng/mL (Sxhmdg=6037) H 03/31/19 23:20 Positive ng/mL (Cutoff= 300) H 03/31/19 23:20 Consult Discharge Plan - Plan Referrals: NONE,PCP [Primary Care Provider] -
[2019-04-02] MEDS: *HR* LORazepam 1 MG TABLET PO PRN (18:17)
--- NOTE | 2019-04-02 18:30 | Electrocardiograph Report ---
[address] [place], [place] [address] Test Date: 2019-03-31 Pat Name: Renita Ty Department: 115 Room: 3A63 Gender: F [employer] Supervisor: : 1970 Requested By: Ricky Alexis Order Number: [id number] Reading MD: Gisele Rudolph Measurements Intervals [place] Rate: 100 P: 71 IA: 137 QRS: 53 QRSD: 98 T: 40 QT: 353 QTc: 410 Interpretive Statements SINUS TACHYCARDIA INCOMPLETE RIGHT BUNDLE BRANCH BLOCK ABNORMAL RHYTHM ECG Electronically Signed On 04-02-2019 18:29:07 EDT by Gisele Rudolph
[2019-04-03] MEDS: Insulin LISPRO 300 UNITS/3 ML VIAL SQ SCH ×2 (08:25→12:29)
[2019-04-03] MEDS: Insulin DETEMIR 100 UNIT/ML X5UNITS SQ SCH (08:26)
[2019-04-03] MEDS: Gabapentin 300 MG CAPSULE PO SCH (08:26)
[2019-04-03] MEDS: Levofloxacin 750 MG/150 ML 750 MG/150 ML BAG IVPB SCH (08:26)
[2019-04-03] MEDS: *HR* LORazepam 1 MG TABLET PO PRN (08:36)
[2019-04-03 09:37] LABS: Basophils % 0.6 %; Eosinophils # 0.1 K/mcL (0.0-0.6); Hematocrit 46.5 % (35.3-44.9); Hemoglobin 15.1 g/dL (11.5-15.4); Immature Granulocytes % 0.4 % (0-4); Lymphocytes # 1.8 K/mcL (0.6-4.6); Lymphocytes % 24.6 %; Mean Corpuscular HGB Conc 32.5 g/dL (31.6-35.5); Mean Corpuscular Hemoglobin 29.3 pg (28.0-33.3); Mean Corpuscular Volume 90.1 fL (83.0-100.0); Mean Platelet Volume 10.3 fL (9.4-12.4); Monocytes # 0.5 K/mcL (0.0-1.3); Monocytes % 6.3 %; Neutrophils # 4.7 K/mcL (1.6-8.9); Platelet Count 134 K/mcL (140-400); Red Blood Count 5.16 M/mcL (3.82-4.97); Red Cell Distribution Width 12.4 % (11.5-14.5); Segmented Neutrophils % 66.1 %
[2019-04-03 09:56] LABS: BUN/Creatinine Ratio 29 (6-26); Blood Urea Nitrogen 14 mg/dL (6-20); Calcium 8.7 mg/dL (8.6-10.3); Carbon Dioxide 29 mEq/L (23-29); Chloride 101 mEq/L (98-107); Glucose 209 mg/dL (70-105); Osmolality,Calculated 283 (280-300); Sodium 133 mEq/L (136-145); eGFR For Non-African Americans > 60 (> 60)
[2019-04-03 11:27] VITALS: BP 100/67
--- NOTE | 2019-04-03 13:06 | Orthopedics Progress Note ---
Date of Encounter: 04/03/19 Time of Encounter: 12:50 - Assessment and Plan (1) Abscess Current Visit: Yes Status: Acute s/p bedside I&D of right elbow abscess 04/01/19. Wound cx pending - prelim no growth, no growth to date but IV abx had already been started before cx obtained Continued improvement to erythema and swelling to right medial elbow. Begin local wound care cleansing with soap/water 3xdaily while in hospital to continue upon discharge home as well. Patient educated on instructions how to do this. Keep covered with dry gauze dressings until fully healed. Continue motion as tolerated. Continue abx per primary team. WBC continues WNL 7.2 today. Upon discharge recommend transition to PO abx per primary team. Will schedule follow up in [facility] office with sports medicine provider next week. Appt card to be faxed to floor. Subjective Principal diagnosis: right elbow abscess Interval history: Patient states she is feeling much better today. States arm pain is minimal. She expressed interest in staying clean now and states she is moving back to [place] away from the people who influenced her to use drugs. Denies any new symptoms overnight. Denies any numbness or tingling to extremity. Objective Vital signs: Vital Signs Temp Pulse Resp BP Pulse Ox 04/03/19 11:16 98.5 F 99 15 100/67 96 04/03/19 07:22 98.5 F 81 15 112/78 95 04/03/19 02:27 98.3 F 91 14 120/81 96 04/02/19 20:40 98.9 F 98 14 119/78 98 04/02/19 15:02 97.8 F 94 15 112/71 96 Intake and Output 04/02/19 04/03/19 04/03/19 23:59 07:59 15:59 Intake Total 600 / 2594 1300 / 1540 240 / 1540 Output Total 0 / 60 Balance 600 / 2534 1300 / 1540 240 / 1540 Intake: IV Fluids 500 / 500 Vancocin 1,250 MG In 0.9 % 500 / 500 Sodium Chloride 250 ML @ 166. 667 mls/hr IVPB Q8H DANIELA Rx#: [id number] Oral 600 / 840 800 / 1040 240 / 1040 Output: Urine 0 / 60 Other: Meal Dinner Breakfast Percent of Meal Consumed 100% 100% # Voids 3 1 Weight 70.2 kg Blood Glucose* 249 165 262 Patient Weight 04/03/19 23:59 Weight 70.2 kg Incision: red (continuation of mild erythema around incision, minimal swelling much improved, open wound with no active drainage or granulation tissue formation. full elbow and hand ROM, brisk cap refill, sensation intact distally) - Labs CBC & BMP: 04/03/19 09:01 04/03/19 09:01 Labs: Abnormal lab results RBC 5.16 M/mcL (3.82-4.97) H 04/03/19 09:01 Hgb 16.1 g/dL (11.5-15.4) H 03/31/19 17:01 Hct 46.5 % (35.3-44.9) H 04/03/19 09:01 Plt Count 134 K/mcL (140-400) L 04/03/19 09:01 VBG HCO3 28 mEq/L (21-27) H 03/31/19 17:21 Sodium 133 mEq/L (136-145) L 04/03/19 09:01 Chloride 92 mEq/L (98-107) L 03/31/19 17:01 0.49 mg/dL (0.60-1.20) L 04/03/19 09:01 29 (6-26) H 04/03/19 09:01 Glucose 209 mg/dL (70-105) H 04/03/19 09:01 POC Glucose 249 mg/dL (70-99) H 04/02/19 20:38 11.9 % (-5.6) H 03/31/19 21:15 Lactic Acid 3.1 mmol/L (0.5-2.2) H 03/31/19 21:06 Calcium 7.7 mg/dL (8.6-10.3) L 04/01/19 00:52 Magnesium 1.5 mg/dL (1.6-2.6) L 04/01/19 00:52 AST 72 Units/L (13-39) H 04/01/19 00:52 ALT 73 Units/L (7-52) H 04/01/19 00:52 5.2 g/dL (6.4-8.9) L 04/01/19 00:52 2.8 g/dL (3.5-5.7) L 04/01/19 00:52 Cloudy (Clear) A 03/31/19 17:21 Ur Specific [place] > 1.030 (1.010-1.025) H 03/31/19 17:21 >=1000 mg/dL (Normal) H 03/31/19 17:21 Small (Negative) H 03/31/19 17:21 Ur Leukocyte Esterase Small (Negative) H 03/31/19 17:21 3-5 per hpf (0-3) H 03/31/19 17:21 50-100 per hpf (0-3) H 03/31/19 17:21 Ur Squamous Epith Cells Many per lpf (None-Few) H 03/31/19 17:21 Many per hpf (None-Few) H 03/31/19 17:21 Ur Culture Indicated? YES (NO) A 03/31/19 17:21 Ur Amphetamines Screen Positive ng/mL (Pvvdld=[id number]) H 03/31/19 23:20 Positive ng/mL (Cutoff= 300) H 03/31/19 23:20 Consult Discharge Plan - Plan Referrals: John Mccullough MD [Partnered Physician] - 04/11/19 10:30 am NONE,PCP [Primary Care Provider] -
--- NOTE | 2019-04-03 13:42 | Discharge Summary ---
Orders not resulted at time of discharge: Pending orders 03/31/19 17:11 Culture,Blood [BC] Stat 03/31/19 20:53 Chlamydia Trachomatis DNA Ur [MOLMIC] Routine Neisseria Gonorrhoeae DNA, Ur [MOLMIC] Routine 03/31/19 21:15 Culture,Blood [BC] Stat 04/01/19 18:26 Culture,Anaerobic [RM] Stat Culture,Wound [RM] Stat Date of Encounter: 04/03/19 Time of Encounter: 13:34 - Discharge Diagnosis (1) Abscess Priority: Primary Status: Acute (2) Urinary tract infection Priority: Secondary Status: Ruled-out Qualifiers: Urinary tract infection type: acute cystitis Hematuria presence: without hematuria Qualified Code(s): N30.00 - Acute cystitis without hematuria (3) DVT prophylaxis Priority: Secondary Status: Acute (4) Hypertension Priority: Secondary Status: Chronic Qualifiers: Hypertension type: essential hypertension Qualified Code(s): I10 - Essential (primary) hypertension (5) Diabetes Priority: Secondary Status: Chronic Qualifiers: Diabetes mellitus type: type 2 Diabetes mellitus complication status: with unspecified complications Qualified Code(s): E11.8 - Type 2 diabetes mellitus with unspecified complications Hospital course: Ms. Ty is a 48 year old female PMH of Diabetes, bipolar, depression and Hepatitis C. Presented to the ER tonight with complaints of abscess/ulcer of her right arm at her injection site she uses for IV drugs. Patient also complains of some abdominal pain. Patient was admitted to the hospital due to right elbow abscess, UTI and hyperglycemia due to uncontrolled DM. Patient was managed with IV antibiotics, IV fluids. Mcduffie cultured. Urine culture: E.coli. Blood culture: no growth. CT/CT abd pelvis w iv and oral IMPRESSION: Contracted gallbladder, without evidence of gallstones or acute cholecystitis. Periportal edema in the liver, which is a nonspecific finding. The stomach is mildly distended with food contents. CT/CT UE RT w con IMPRES WENDY: 7 x 12 x 9 mm soft tissue abscess with focus of gas along the medial elbow. No evidence of deep soft tissue violation or osteomyelitis. No radiopaque foreign body. Ortho consulted and patient underwent I&D. Wound culture: no growth. Patient is hemodynamically stable to be discharged home on oral antibiotics. Recommended to follow up with the Orthopedic team as outpatient within a week of hospital discharge. - Time Spent with Patient Total time spent providing and/or coordinating discharge services: Time spent: Greater than 30 minutes (45) - Discharge Medications Prescriptions: New levoFLOXacin [Levofloxacin] 750 mg PO DAILY 10 Days #10 tablet metroNIDAZOLE [Metronidazole] 500 mg PO TID 10 Days #30 tablet Continued Insulin Glargine,Hum.rec.anlog [Basaglar Kwikpen U-100] 20 unit SQ HS 30 Days #3 insuln.pen Insulin Glargine,Hum.rec.anlog [Basaglar Kwikpen U-100] 25 units SQ QAM 30 Days #3 insuln.pen Carvedilol [Coreg] 3.125 mg PO BIDWM 30 Days #60 tablet DULoxetine [Cymbalta] 30 mg PO DAILY 30 Days #30 capsule. Ibuprofen [Ibu] 800 mg PO TID PRN 30 Days #90 tablet PRN Reason: Pain Gabapentin [Neurontin] 300 mg PO TID 30 Days #90 capsule Quetiapine Fumarate [Seroquel] 25 mg PO HS 30 Days #30 tablet Lisinopril [Zestril] 2.5 mg PO DAILY 30 Days #30 tablet Home Medications: Carvedilol [Coreg] 3.125 mg PO BIDWM 30 Days #60 tablet 04/03/19 [Rx] DULoxetine [Cymbalta] 30 mg PO DAILY 30 Days #30 capsule. 04/03/19 [Rx] Gabapentin [Neurontin] 300 mg PO TID 30 Days #90 capsule 04/03/19 [Rx] Ibuprofen [Ibu] 800 mg PO TID PRN 30 Days #90 tablet 04/03/19 [Rx] Insulin Glargine,Hum.rec.anlog [Basaglar Kwikpen U-100] 20 unit SQ HS 30 Days #3 insuln.pen 04/03/19 [Rx] Insulin Glargine,Hum.rec.anlog [Basaglar Kwikpen U-100] 25 units SQ QAM 30 Days #3 insuln.pen 04/03/19 [Rx] Lisinopril [Zestril] 2.5 mg PO DAILY 30 Days #30 tablet 04/03/19 [Rx] Quetiapine Fumarate [Seroquel] 25 mg PO HS 30 Days #30 tablet 04/03/19 [Rx] levoFLOXacin [Levofloxacin] 750 mg PO DAILY 10 Days #10 tablet 04/03/19 [Rx] metroNIDAZOLE [Metronidazole] 500 mg PO TID 10 Days #30 tablet 04/03/19 [Rx] Allergies/Adverse Reactions: Allergy/AdvReac Type Severity Reaction Status Date / Time Penicillins Allergy Rash Verified 03/31/19 16:37 Date of admission: 03/31/19 20:53 Primary care physician: PCP NONE Consults: 04/01/19 11:17 Consult to Orthopedic Surgery [CONS] Routine Consulting Provider: [facility] Reason for Consult: Right elbow abscess Call Completed: Yes - Constitutional Vitals: Temp Pulse Resp BP Pulse Ox 98.5 F 99 15 100/67 96 04/03/19 11:16 04/03/19 11:16 04/03/19 11:16 04/03/19 11:16 04/03/19 11:16 General appearance: Present: cooperative, mild distress, A&O X 3, pleasant, answers questions appropriately Exam: Vitals: reviewed General: Alert and oriented, not in acute distress. Cardiovascular: Normal S1 & S2, No JVD. Pulse regular. No murmur Lungs: clear to auscultation, no wheezes/rales Abdomen:Soft, non-tender, no rigidity. Extremities: RUE dressing c/d/i, neurovascularly intact distally Neuro: No acute focal neurological abnormalities. - Patient Status Disposition: Home, Self-Care Condition: Good Functional capacity at discharge: independent ambulation Overall status at discharge: patient is back to baseline - Discharge Instructions Follow Up With: John Mccullough MD [Partnered Physician] - 04/11/19 10:30 am NONE,PCP [Primary Care Provider] - - Diet and Activity Activity: resume usual activities as tolerated Diet: diabetic diet
[2019-04-03] MEDS ORDERED: Aminoglycoside Consult 1 EACH MC ONE (15:36)
== END 2019-04-03 15:37 | disposition home or self-care (01) | DRG 383 ==
LOC: EMEROOARM 16:35 → 3ANU 16:35 → SUATTDRO 18:36 → 3ANU 19:28 → SUATTDRO 20:53
PROVIDERS: ADMIT Student in an Organized Health Care Education/Training Program; ATTEND Internal Medicine

== ENCOUNTER 2019-06-30 13:12 | Observation (INO) ==
[2019-06-30] MEDS ORDERED: 0.9 % Sodium Chloride 1,000 ML IVC SCH ×2 (13:30→17:15)
[2019-06-30 14:06] LABS: Basophils # 0.1 K/mcL (0.0-0.2); Basophils % 0.8 %; Eosinophils # 0.1 K/mcL (0.0-0.6); Eosinophils % 1.1 %; Hematocrit 51.7 % (35.3-44.9); Hemoglobin 16.7 g/dL (11.5-15.4); Immature Granulocytes % 0.4 % (0-4); Lymphocytes # 4.2 K/mcL (0.6-4.6); Lymphocytes % 36.8 %; Mean Corpuscular HGB Conc 32.3 g/dL (31.6-35.5); Mean Corpuscular Hemoglobin 29.7 pg (28.0-33.3); Mean Platelet Volume 10.7 fL (9.4-12.4); Monocytes # 0.9 K/mcL (0.0-1.3); Monocytes % 8.2 %; Platelet Count 194 K/mcL (140-400); Red Blood Count 5.62 M/mcL (3.82-4.97); Red Cell Distribution Width 12.3 % (11.5-14.5); Segmented Neutrophils % 52.7 %; White Blood Count 11.5 K/mcL (4.3-11.1)
[2019-06-30 14:07] LABS: VBG HCO3 26 mEq/L (21-27); VBG PCO2 57 mmHg (41-51); VBG PH 7.27 pH Units (7.32-7.42); VBG PO2 39 mmHg (25-50)
[2019-06-30 14:08] LABS: Neutrophils # 6.1 K/mcL (1.6-8.9)
[2019-06-30 14:09] LABS: Platelet Estimate Normal (Normal); Reactive Lymphocytes Present (Not Present)
[2019-06-30 14:35] LABS: Alanine Aminotransferase 72 Units/L (7-52); Albumin 4.1 g/dL (3.5-5.7); Alkaline Phosphatase 116 Units/L (34-104); Aspartate Amino Transferase 39 Units/L (13-39); BUN/Creatinine Ratio 7 (6-26); Bilirubin,Total 0.4 mg/dL (0.3-1.0); Blood Urea Nitrogen 5 mg/dL (6-20); Calcium 9.2 mg/dL (8.6-10.3); Carbon Dioxide 26 mEq/L (23-29); Chloride 90 mEq/L (98-107); Globulin 4.1 g/dL (2.4-3.5); Glucose 709 mg/dL (70-105); Osmolality,Calculated 291 (280-300); Potassium 3.8 mEq/L (3.5-5.1); Sodium 125 mEq/L (136-145); Total Protein 8.2 g/dL (6.4-8.9); eGFR For African Americans > 60 (> 60); eGFR For Non-African Americans > 60 (> 60)
[2019-06-30 14:37] LABS: Bilirubin,Urine Negative (Negative); Blood,Urine Negative (Negative); Clarity,Urine Clear (Clear); Color,Urine Yellow (Yellow); Glucose,Urine (UA) >=1000 mg/dL (Normal); Ketones,Urine Negative (Negative); Leukocyte Esterase,Urine Negative (Negative); Nitrite,Urine Negative (Negative); Protein,Urine Negative (Neg-Trace); Specific Gravity,Urine > 1.030 (1.010-1.025); Urobilinogen,Urine Normal (Normal)
[2019-06-30] MEDS ORDERED: 0.9 % Sodium Chloride 1,000 ML IVC ONE (14:47)
[2019-06-30] MEDS ORDERED: *HR* Dextrose 50 % in Water (Syg) 50 ML SYRINGE IVP PRN ×3 (15:00→20:03)
[2019-06-30] MEDS ORDERED: Insulin Human Regular 100 UNIT in 0.9 % Sodium Chloride 100 ML IVC SCH (15:00)
[2019-06-30 15:04] LABS: Amphetamine Screen,Urine Positive ng/mL (Cutoff=1000); Barbiturate Screen,Urine Negative ng/mL (Cutoff=200); Benzodiazepines Screen,Urine Negative ng/mL (Cutoff=200); Cannabinoid Screen,Urine Negative ng/mL (Cutoff = 50); Cocaine Screen,Urine Negative ng/mL (Cutoff= 300); Opiate Screen,Urine Negative ng/mL (Cutoff=300); Phencyclidine Screen,Urine Negative ng/mL (Cutoff=25)
[2019-06-30] MEDS ORDERED: Naloxone 0.4 MG/ML INJ IVP PRN (16:57)
[2019-06-30] MEDS ORDERED: D5% in 0.45% NACL w KCl 20 MEQ/1,000 ML MLS IVC PRN (17:01)
[2019-06-30] MEDS ORDERED: D5% in 0.45% NACL 1,000 ML IVC PRN (17:01)
[2019-06-30] MEDS ORDERED: 0.9 % Sodium Chloride w KCl 40 MEQ/1,000 ML MLS IVC SCH (17:15)
[2019-06-30 18:08] LABS: VBG HCO3 26 mEq/L (21-27); VBG PCO2 50 mmHg (41-51); VBG PH 7.32 pH Units (7.32-7.42); VBG PO2 43 mmHg (25-50)
[2019-06-30 18:26] LABS: C-Reactive Protein < 5 mg/L (Less than 10); Salicylate < 2.5 mg/dL (15.0-30.0)
[2019-06-30 18:33] LABS: BUN/Creatinine Ratio 7 (6-26); Blood Urea Nitrogen 4 mg/dL (6-20); Calcium 8.6 mg/dL (8.6-10.3); Carbon Dioxide 26 mEq/L (23-29); Chloride 102 mEq/L (98-107); Glucose 199 mg/dL (70-105); Osmolality,Calculated 286 (280-300); Potassium 3.5 mEq/L (3.5-5.1); Sodium 137 mEq/L (136-145); eGFR For African Americans > 60 (> 60); eGFR For Non-African Americans > 60 (> 60)
[2019-06-30] MEDS: Thiamine (B-1) 100 MG TABLET PO SCH (18:34)
[2019-06-30] MEDS: Folic Acid 1 MG TABLET PO SCH (18:34)
[2019-06-30] MEDS ORDERED: Dextrose Gel 15 GM/37.5 ML TUBE PO PRN ×2 (20:03)
[2019-06-30] MEDS ORDERED: D5% in Water 1,000 ML IVC PRN (20:03)
[2019-06-30] MEDS ORDERED: Insulin DETEMIR 100 UNIT/ML X5UNITS SQ ONE (20:49)
[2019-06-30] MEDS ORDERED: QUEtiapine Fumarate 25 MG TABLET PO SCH (21:00)
[2019-06-30] MEDS: Gabapentin 300 MG CAPSULE PO SCH (21:17)
[2019-06-30] MEDS: *HR* Heparin 5,000 UNIT/ML VIAL SQ SCH (21:17)
[2019-06-30 22:06] LABS: BUN/Creatinine Ratio 11 (6-26); Blood Urea Nitrogen 5 mg/dL (6-20); Calcium 9.1 mg/dL (8.6-10.3); Carbon Dioxide 21 mEq/L (23-29); Chloride 106 mEq/L (98-107); Glucose 230 mg/dL (70-105); Osmolality,Calculated 289 (280-300); Potassium 4.9 mEq/L (3.5-5.1); Sodium 137 mEq/L (136-145); eGFR For African Americans > 60 (> 60); eGFR For Non-African Americans > 60 (> 60)
[2019-06-30] MEDS ORDERED: Insulin LISPRO 300 UNITS/3 ML VIAL SQ SCH (23:17)
[2019-06-30] MEDS ORDERED: *HR* LORazepam 2 MG/ML VIAL IVP ONE (23:46)
[2019-07-01] MEDS: *HR* Heparin 5,000 UNIT/ML VIAL SQ SCH ×2 (06:16→17:16)
[2019-07-01 08:18] LABS: VBG HCO3 29 mEq/L (21-27); VBG PCO2 40 mmHg (41-51); VBG PH 7.46 pH Units (7.32-7.42); VBG PO2 190 mmHg (25-50)
[2019-07-01] MEDS: Insulin LISPRO 300 UNITS/3 ML VIAL SQ SCH ×3 (08:36→17:17)
[2019-07-01 08:37] LABS: BUN/Creatinine Ratio 11 (6-26); Blood Urea Nitrogen 5 mg/dL (6-20); Calcium 9.3 mg/dL (8.6-10.3); Carbon Dioxide 27 mEq/L (23-29); Chloride 99 mEq/L (98-107); Glucose 170 mg/dL (70-105); Magnesium 1.8 mg/dL (1.6-2.6); Osmolality,Calculated 281 (280-300); Phosphorous 3.9 mg/dL (2.7-4.5); Potassium 3.9 mEq/L (3.5-5.1); Sodium 135 mEq/L (136-145); eGFR For African Americans > 60 (> 60); eGFR For Non-African Americans > 60 (> 60)
[2019-07-01] MEDS: Folic Acid 1 MG TABLET PO SCH (08:40)
[2019-07-01] MEDS: Gabapentin 300 MG CAPSULE PO SCH ×2 (08:40→17:16)
[2019-07-01] MEDS: carvediloL 6.25 MG TABLET PO SCH ×2 (08:40→17:16)
[2019-07-01] MEDS: Thiamine (B-1) 100 MG TABLET PO SCH (08:41)
[2019-07-01] MEDS ORDERED: NON-FORMULARY MEDICATION 1 EACH EACH (Insulin Glargine,Hum.Rec.Anlog [Basaglar Kwikpen U-1 SQ SCH (09:00)
[2019-07-01] MEDS ORDERED: Insulin DETEMIR 100 UNIT/ML X5UNITS SQ SCH ×2 (09:00)
[2019-07-01 11:07] LABS: Estimated Average Glucose 292 mg/dl
[2019-07-01 11:28] VITALS: BP 128/83
[2019-07-01 13:31] LABS: Hematocrit 47.8 % (35.3-44.9); Mean Corpuscular HGB Conc 33.5 g/dL (31.6-35.5); Mean Corpuscular Hemoglobin 30.4 pg (28.0-33.3); Mean Corpuscular Volume 90.7 fL (83.0-100.0); Mean Platelet Volume 10.2 fL (9.4-12.4); Platelet Count 194 K/mcL (140-400); Red Blood Count 5.27 M/mcL (3.82-4.97); Red Cell Distribution Width 12.3 % (11.5-14.5); White Blood Count 10.8 K/mcL (4.3-11.1)
[2019-07-01 13:37] LABS: VBG HCO3 31 mEq/L (21-27); VBG PCO2 45 mmHg (41-51); VBG PH 7.44 pH Units (7.32-7.42); VBG PO2 180 mmHg (25-50)
== END 2019-07-01 18:05 | disposition home health service (06) ==
LOC: 2NNU 13:12 → EMEROOARM 13:12 → 2NNU 17:57
PROVIDERS: ADMIT Internal Medicine; ATTEND Internal Medicine

== ENCOUNTER 2019-07-03 14:25 | Observation (INO) ==
[2019-07-03 14:59] LABS: Bilirubin,Urine Negative (Negative); Blood,Urine Negative (Negative); Clarity,Urine Clear (Clear); Color,Urine Yellow (Yellow); Glucose,Urine (UA) >=1000 mg/dL (Normal); Ketones,Urine Negative (Negative); Leukocyte Esterase,Urine Negative (Negative); Nitrite,Urine Negative (Negative); Protein,Urine Negative (Neg-Trace); Specific Gravity,Urine > 1.030 (1.010-1.025); Urobilinogen,Urine Normal (Normal)
[2019-07-03 15:31] LABS: Amphetamine Screen,Urine Negative ng/mL (Cutoff=1000); Barbiturate Screen,Urine Negative ng/mL (Cutoff=200); Benzodiazepines Screen,Urine Negative ng/mL (Cutoff=200); Cannabinoid Screen,Urine Positive ng/mL (Cutoff = 50); Cocaine Screen,Urine Negative ng/mL (Cutoff= 300); Opiate Screen,Urine Negative ng/mL (Cutoff=300); Phencyclidine Screen,Urine Negative ng/mL (Cutoff=25)
[2019-07-03 15:38] LABS: Basophils # 0.1 K/mcL (0.0-0.2); Basophils % 0.5 %; Eosinophils # 0.2 K/mcL (0.0-0.6); Eosinophils % 1.1 %; Hematocrit 46.6 % (35.3-44.9); Hemoglobin 15.7 g/dL (11.5-15.4); Immature Granulocytes % 0.7 % (0-4); Lymphocytes # 3.1 K/mcL (0.6-4.6); Lymphocytes % 18.3 %; Mean Corpuscular HGB Conc 33.7 g/dL (31.6-35.5); Mean Corpuscular Hemoglobin 29.6 pg (28.0-33.3); Mean Corpuscular Volume 87.9 fL (83.0-100.0); Monocytes # 0.9 K/mcL (0.0-1.3); Monocytes % 5.5 %; Neutrophils # 12.6 K/mcL (1.6-8.9); Platelet Count 177 K/mcL (140-400); Red Cell Distribution Width 11.9 % (11.5-14.5); Segmented Neutrophils % 73.9 %
[2019-07-03] MEDS ORDERED: *HR* LORazepam 2 MG/ML VIAL IVP ONE (15:45)
[2019-07-03 15:48] LABS: Prothrombin Time 11.2 Seconds (9.4-12.1)
[2019-07-03 15:59] LABS: BUN/Creatinine Ratio 12 (6-26); Blood Urea Nitrogen 6 mg/dL (6-20); Calcium 9.5 mg/dL (8.6-10.3); Carbon Dioxide 32 mEq/L (23-29); Chloride 93 mEq/L (98-107); Glucose 356 mg/dL (70-105); Osmolality,Calculated 284 (280-300); Potassium 4.8 mEq/L (3.5-5.1); Sodium 131 mEq/L (136-145); Troponin I < 0.03 ng/mL (< 0.04); eGFR For African Americans > 60 (> 60); eGFR For Non-African Americans > 60 (> 60)
[2019-07-03] MEDS ORDERED: cefTRIAXone 1,000 MG in 0.9 % Sodium Chloride Mini Bag 100 ML IVPB ONE (16:19)
[2019-07-03] MEDS ORDERED: Lidocaine -MPF 1% 5 ML AMPUL INFILT ONE (16:43)
[2019-07-03] MEDS ORDERED: Naloxone 0.4 MG/ML INJ IVP PRN (17:25)
[2019-07-03] MEDS ORDERED: D5% in Water 1,000 ML IVC PRN (18:26)
[2019-07-03] MEDS ORDERED: Dextrose Gel 15 GM/37.5 ML TUBE PO PRN ×2 (18:26)
[2019-07-03] MEDS ORDERED: *HR* Dextrose 50 % in Water (Syg) 50 ML SYRINGE IVP PRN (18:26)
[2019-07-03] MEDS ORDERED: *HR* LORazepam 2 MG/ML VIAL IVP PRN (18:32)
[2019-07-03] MEDS ORDERED: Ondansetron 4 MG/2 ML VIAL IVP PRN (18:54)
[2019-07-03 20:21] LABS: Estimated Average Glucose 295 mg/dl
[2019-07-03] MEDS ORDERED: Isovue-370 500 ML BOTTLE IVP ONE (22:03)
[2019-07-03] MEDS: Insulin LISPRO 300 UNITS/3 ML VIAL SQ SCH (23:28)
[2019-07-04 02:29] LABS: Basophils # 0.1 K/mcL (0.0-0.2); Basophils % 0.6 %; Eosinophils # 0.2 K/mcL (0.0-0.6); Eosinophils % 1.5 %; Hematocrit 45.6 % (35.3-44.9); Hemoglobin 15.3 g/dL (11.5-15.4); Immature Granulocytes % 0.4 % (0-4); Lymphocytes # 5.2 K/mcL (0.6-4.6); Lymphocytes % 32.5 %; Mean Corpuscular HGB Conc 33.6 g/dL (31.6-35.5); Mean Corpuscular Hemoglobin 29.7 pg (28.0-33.3); Mean Corpuscular Volume 88.4 fL (83.0-100.0); Monocytes # 0.8 K/mcL (0.0-1.3); Monocytes % 4.9 %; Neutrophils # 9.6 K/mcL (1.6-8.9); Platelet Count 197 K/mcL (140-400); Red Blood Count 5.16 M/mcL (3.82-4.97); Red Cell Distribution Width 11.9 % (11.5-14.5); Segmented Neutrophils % 60.1 %; White Blood Count 15.9 K/mcL (4.3-11.1)
[2019-07-04 02:48] LABS: BUN/Creatinine Ratio 12 (6-26); Blood Urea Nitrogen 7 mg/dL (6-20); Carbon Dioxide 30 mEq/L (23-29); Chloride 96 mEq/L (98-107); Glucose 332 mg/dL (70-105); Magnesium 1.9 mg/dL (1.6-2.6); Osmolality,Calculated 289 (280-300); Phosphorous 3.2 mg/dL (2.7-4.5); Potassium 3.7 mEq/L (3.5-5.1); Sodium 134 mEq/L (136-145); eGFR For African Americans > 60 (> 60); eGFR For Non-African Americans > 60 (> 60)
[2019-07-04] MEDS: Gabapentin 300 MG CAPSULE PO SCH ×4 (03:17→22:24)
[2019-07-04] MEDS: Nicotine 21 MG PATCH.TD24 TD SCH ×2 (03:17→08:23)
[2019-07-04] MEDS: *HR* LORazepam 2 MG/ML VIAL IVP PRN ×3 (03:17→22:31)
[2019-07-04] MEDS: QUEtiapine Fumarate 25 MG TABLET PO SCH ×2 (03:17→22:24)
[2019-07-04] MEDS: 0.9 % Sodium Chloride 1,000 ML IVC SCH ×4 (03:18→22:24)
[2019-07-04] MEDS: Insulin DETEMIR 100 UNIT/ML X5UNITS SQ SCH ×3 (03:18→22:24)
[2019-07-04] MEDS: cefTRIAXone 1,000 MG in Water for inj. (sterile) 10 ML IVP SCH (08:16)
[2019-07-04] MEDS: carvediloL 6.25 MG TABLET PO SCH ×2 (08:25→16:57)
[2019-07-04] MEDS: Folic Acid 1 MG TABLET PO SCH (08:25)
[2019-07-04] MEDS: Thiamine (B-1) 100 MG TABLET PO SCH (08:26)
[2019-07-04] MEDS: Insulin LISPRO 300 UNITS/3 ML VIAL SQ SCH ×3 (08:27→16:57)
[2019-07-05 09:30] LABS: Basophils % 0.4 %; Eosinophils # 0.2 K/mcL (0.0-0.6); Eosinophils % 1.7 %; Hematocrit 43.4 % (35.3-44.9); Hemoglobin 14.1 g/dL (11.5-15.4); Immature Granulocytes % 0.4 % (0-4); Lymphocytes # 2.9 K/mcL (0.6-4.6); Lymphocytes % 27.1 %; Mean Corpuscular HGB Conc 32.5 g/dL (31.6-35.5); Mean Corpuscular Hemoglobin 29.6 pg (28.0-33.3); Mean Platelet Volume 9.9 fL (9.4-12.4); Monocytes # 0.6 K/mcL (0.0-1.3); Monocytes % 5.7 %; Neutrophils # 6.9 K/mcL (1.6-8.9); Platelet Count 161 K/mcL (140-400); Red Blood Count 4.77 M/mcL (3.82-4.97); Segmented Neutrophils % 64.7 %; White Blood Count 10.7 K/mcL (4.3-11.1)
[2019-07-05] MEDS: cefTRIAXone 1,000 MG in Water for inj. (sterile) 10 ML IVP SCH (09:40)
[2019-07-05] MEDS: Nicotine 21 MG PATCH.TD24 TD SCH (09:41)
[2019-07-05] MEDS: Insulin LISPRO 300 UNITS/3 ML VIAL SQ SCH ×2 (09:41→12:00)
[2019-07-05] MEDS: Gabapentin 300 MG CAPSULE PO SCH ×2 (09:42→15:08)
[2019-07-05] MEDS: carvediloL 6.25 MG TABLET PO SCH (09:42)
[2019-07-05] MEDS: Folic Acid 1 MG TABLET PO SCH (09:42)
[2019-07-05] MEDS: Thiamine (B-1) 100 MG TABLET PO SCH (09:42)
[2019-07-05 09:49] LABS: BUN/Creatinine Ratio 19 (6-26); Blood Urea Nitrogen 8 mg/dL (6-20); Calcium 8.7 mg/dL (8.6-10.3); Carbon Dioxide 29 mEq/L (23-29); Chloride 102 mEq/L (98-107); Glucose 198 mg/dL (70-105); Osmolality,Calculated 286 (280-300); Potassium 3.9 mEq/L (3.5-5.1); Sodium 136 mEq/L (136-145); eGFR For African Americans > 60 (> 60); eGFR For Non-African Americans > 60 (> 60)
[2019-07-05] MEDS: *HR* LORazepam 2 MG/ML VIAL IVP PRN (09:55)
[2019-07-05] MEDS: Insulin DETEMIR 100 UNIT/ML X5UNITS SQ SCH (09:56)
[2019-07-05] MEDS: 0.9 % Sodium Chloride 1,000 ML IVC SCH (09:59)
[2019-07-05 11:49] VITALS: BP 115/74
[2019-07-05] MEDS ORDERED: Aminoglycoside Consult 1 EACH MC ONE (16:36)
== END 2019-07-05 16:37 | disposition home or self-care (01) ==
LOC: 3BNU 14:25 → EMEROOARM 14:25 → 3BNU 22:01
PROVIDERS: ADMIT Internal Medicine; ATTEND Internal Medicine